=== PATIENT | female | born 1940 | race Caucasian/White ===

== ENCOUNTER 2019-01-24 06:04 | Day surgery (SDC) | payer OTHER, MEDICARE ==
[2019-01-23 17:03] VITALS: BMI 23.6
[2019-01-24] MEDS ORDERED: MIDAZOLAM HCL 2 MG/2 ML SINGLE DOSE VIAL ONE (07:05)
[2019-01-24] MEDS ORDERED: SUCCINYLCHOLINE CHLORIDE 200 MG/10 ML VIAL ONE (07:08)
[2019-01-24] MEDS ORDERED: ROCURONIUM BROMIDE 50 MG/5 ML VIAL ONE (07:08)
[2019-01-24] MEDS ORDERED: DEXAMETHASONE SOD PHOSPHATE 4 MG/1 ML VIAL ONE ×2 (07:09→08:30)
[2019-01-24] MEDS ORDERED: ONDANSETRON 4 MG/2 ML VIAL ONE (07:09)
[2019-01-24] MEDS ORDERED: LIDOCAINE HCL/PF 2% SDV 5ML VIAL ONE ×2 (07:09→08:30)
[2019-01-24] MEDS ORDERED: KETOROLAC TROMETHAMINE 30 MG/1 ML VIAL ONE ×2 (07:09→08:30)
[2019-01-24] MEDS ORDERED: PROPOFOL 20 ML ONE ×3 (07:17→10:26)
[2019-01-24] MEDS ORDERED: POVIDONE-IODINE 5% OPHTHALMIC PREP 30 ML SOLUTION ONE (07:30)
[2019-01-24] MEDS ORDERED: LIDOCAINE 1%/EPI 1:100000 (20 ML MULTI DOSE VIAL) ONE (07:30)
[2019-01-24] MEDS ORDERED: oxyCODONE HCL 5 MG TABLET PO PRN ×4 (07:35→10:50)
[2019-01-24] MEDS ORDERED: ONDANSETRON 4 MG/2 ML VIAL IVPUSH PRN (07:35)
[2019-01-24] MEDS ORDERED: ACETAMINOPHEN 325 MG TABLET (FP) PO PRN (07:35)
[2019-01-24] MEDS ORDERED: LACTATED RINGERS SOLUTION 1,000 ML IV SCH ×2 (07:45→11:00)
[2019-01-24] MEDS ORDERED: ceFAZolin SODIUM 1 GM VIAL ONE (08:23)
[2019-01-24] MEDS ORDERED: LIDOCAINE 1%/EPI 1:100000 (50 ML MULTI DOSE VIAL) NR ONE (08:25)
[2019-01-24] MEDS ORDERED: BACITRACIN/POLYMYXIN OPH OINT 3.5 GM TUBE ONE (10:09)
[2019-01-24] MEDS ORDERED: BACITRACIN 15 GM TUBE TOPICAL OINTMENT ONE (10:10)
[2019-01-24] MEDS ORDERED: ONDANSETRON 4 MG/2 ML VIAL IVPB PRN (10:50)
[2019-01-24] MEDS ORDERED: ALBUTEROL SO4 8 GM HFA INHALER IH PRN (10:51)
[2019-01-24] MEDS ORDERED: MELATONIN 2.5 MG PO PRN (10:51)
--- NOTE | 2019-01-24 10:58 | OP ---
Operative Note - Note: Operative Date: 01/24/19 Pre-Operative Diagnosis: basal cell carcinoma on the right lower eyelid Operation: full thickness skin graft to the right lower eyelid Post-Operative Diagnosis: Same as Pre-op Surgeon: Arturo Joseph
[2019-01-24 11:48] VITALS: TEMP 98.4
--- NOTE | 2019-01-24 11:52 | OP ---
DATE OF OPERATION: 01/24/2019 TITLE OF PROCEDURE: 1. Excision of ulcer from basal cell carcinoma on the left lower eyelid. 2. Bilateral lateral orbital canthopexies. 3. A 2-cm full-thickness skin graft from the left upper eyelid to the left lower eyelid. 4. Full-thickness 2-cm skin graft from the right upper eyelid to the left lower eyelid. 5. Haines style tarsorrhaphy suture of the left eyelid. ATTENDING SURGEON: Dominique Yun MD INSPECTOR ASSEMBLIES AND INSTALLATIONS: There were no assistants. DESCRIPTION OF PROCEDURE: Patient was marked in the holding area. The inferior limb of the donor site skin incision was 8 mm from the lash line. Pinch test was used for the superior extent of the incision. The patient had been counseled on the risks, benefits, and alternatives to the procedure, aware of woodard and resulting scars. She was brought to the operating room, 1 g was given. A time-out was called. Patient, procedure, side and sites were verified. She was prepped and draped in standard surgical fashion. A total of 13 mL of 1% lidocaine with 1:100,000 epinephrine was injected locally into the surrounding tissues. After being prepped and draped sterilely, the graft was harvested first from the left upper eyelid. An elliptical segment of skin was harvested only and preserved in a saline-soaked gauze. A mirror-image procedure was performed on the right side, where skin was harvested from the right upper eyelid. Hemostasis was achieved with Wright tip Bovie cautery, and the canthopexies were then prepared on the left eye because of the larger excision was performed. The lateral canthopexy was able to be performed through the lateral extent of the upper eyelid incision. Spreading of the scissors exposes the medial aspect of the lateral orbital rim. The lateral canthal confluence was able to be accessed with a 5-0 Vicryl suture and secured to the lateral orbital rim giving a good support and position to the lateral canthus. On the patients right side, a similar procedure was performed, however, a counter incision at the canthus was required because of the extent of the lateral incision was not long enough to give access to the lateral canthus. Otherwise, the 5-0 Vicryl suture was used for the right lateral canthopexy, and the patient was checked for symmetric position intension of the lower eyelids. Closure of the right-sided lateral canthal incision was performed with a series of interrupted 6-0 Prolene suture. The donor sites were each closed with a running 6-0 Prolene suture in subcuticular fashion with the central pull-out loop. The grafts were prepared for placement onto the wound. The wound was excised in its entirety down to the orbicularis oculi muscle. The edges are excised to create for shape of the graft to conform to the aesthetic subunit. After hemostasis was achieved, the 2 grafts were placed in tandem, one cephalad to the other. They were secured to one another with a series of interrupted 6-0 Prolene sutures. They were secured to the borders of the defect with a series of interrupted 6-0 Prolene sutures. The excess was trimmed. Xeroform, Bacitracin, tie-over bolster was then performed with a series of interrupted 4-0 nylon suture. A central tarsorrhaphy suture with a 4-0 nylon was then performed on the left eyelid from the inferior tarsus to the superior tarsus. All incisions were dressed with Bacitracin. Patient was awoken from anesthesia having tolerated the procedure well, transferred to recovery without complications. It should be noted that Lacri-Lube eye protection ointment was used throughout the entirety of the case. DOMINIQUE YUN M.D. [id number]
[2019-01-24] MEDS ORDERED: oxyCODONE HCL 5 MG TABLET ONE (12:05)
[2019-01-24 13:01] VITALS: BP 117/66; PULSE 89
[2019-01-24] MEDS ORDERED: PATIENT'S OWN MEDICATION (NON-FORMULARY) (Bimatoprost [Lumigan] 1 DROP) OU SCH (22:00)
[2019-01-24] MEDS ORDERED: IRBESARTAN 75 MG PO SCH (22:00)
[2019-01-24] MEDS ORDERED: HYOSCYAMINE SULFATE 0.375 MG PO SCH (22:00)
[2019-01-24] MEDS ORDERED: PATIENT'S OWN MEDICATION (NON-FORMULARY) (Brinzolamide/Brimonidine Tart [Simbrinza 1%-0.2% OU SCH (22:00)
[2019-01-25] MEDS ORDERED: DULoxetine HCL 30 MG CAPSULE.DR (FP) PO SCH (10:00)
== END 2019-01-24 12:50 | disposition home or self-care (01) ==
LOC: FASU 06:04
PROVIDERS: ATTEND Plastic Surgery
PROC: 0HB1XZZ Excision of Face Skin, External Approach (ICD-10-PCS; 2019-01-24)
PROC: 08SP0ZZ Reposition Left Upper Eyelid, Open Approach (ICD-10-PCS; 2019-01-24)
PROC: 08SN0ZZ Reposition Right Upper Eyelid, Open Approach (ICD-10-PCS; 2019-01-24)
PROC: 08QRXZZ Repair Left Lower Eyelid, External Approach (ICD-10-PCS; 2019-01-24)
PROC: 08QPXZZ Repair Left Upper Eyelid, External Approach (ICD-10-PCS; 2019-01-24)
PROC: 0HR1X73 Replacement of Face Skin with Autologous Tissue Substitute, Full Thickness, External Approach (ICD-10-PCS; principal; 2019-01-24 08:38)
DX: C44.1192 Basal cell carcinoma of skin of left lower eyelid, including canthus (principal); L98.499 Non-pressure chronic ulcer of skin of other sites with unspecified severity
CPT/HCPCS: 94760